=== PATIENT | male | born 1945 | race African-American/Black ===

== ENCOUNTER 2020-01-28 17:35 | Inpatient (IN) ==
[2020-01-28] MEDS ORDERED: DEXTROSE 50% 25 GM/50 ML VIAL IV PRN (20:24)
[2020-01-28] MEDS ORDERED: ONDANSETRON 4 MG/2 ML VIAL IV PRN (20:24)
[2020-01-28] MEDS ORDERED: GLUCAGON 1 MG VIAL IM PRN (20:24)
[2020-01-28] MEDS ORDERED: hydrALAZINE 20 MG/1 ML VIAL IV PRN (20:40)
[2020-01-28] MEDS: SODIUM CHLORIDE 0.9% 1,000 ML IV SCH (22:24)
[2020-01-28] MEDS: TAMSULOSIN 0.4 MG CAPSULE PO SCH (22:24)
[2020-01-29 06:08] LABS: Basophils % 0.3 % (0.0-0.8); Eosinophils % 0.1 % (0.00-10.9); Hemoglobin 11.8 GM/DL (14.0-18.0); Immature Granulocytes % 0.4 %; Immature Granulocytes Absolute 0.03 #; Lymphocytes # 0.9 10*3/uL (1.4-4.0); Lymphocytes % 11.2 % (21.2-54.2); Mean Corpuscular HGB Conc 34.7 GM/DL (32-36); Mean Corpuscular Volume 102.1 FL (87-102); Mean Platelet Volume 10.8 FL (9.6-12.0); Monocytes % 12.8 % (1.7-12.7); Neutrophils % 75.2 % (38.7-73.9); Platelet Count 162 T/CUMM (130-400); Red Blood Count 3.33 MC/CUMM (3.8-5.5); Red Cell Distribution Width 11.9 % (9.3-17.3); White Blood Count 7.8 T/CUMM (4-12)
[2020-01-29 06:33] LABS: Albumin 2.4 G/DL (3.4-5.0); Bilirubin,Total 1.5 MG/DL (0.2-1.0); Calcium 7.8 MG/DL (8.5-10.1); Osmolality,Calculated 283.5 MOS/KG (273-304); Total Protein 6.4 G/DL (6.4-8.3)
[2020-01-29] MEDS: SODIUM CHLORIDE 0.9% 1,000 ML IV SCH ×3 (07:36→16:05)
[2020-01-29] MEDS: ENOXAPARIN 30 MG/0.3 ML SYRINGE SUBCUT SCH (09:25)
[2020-01-29] MEDS: TAMSULOSIN 0.4 MG CAPSULE PO SCH ×2 (09:26→21:05)
[2020-01-29] MEDS: PANTOPRAZOLE 40 MG TABLET PO SCH (09:26)
[2020-01-29] MEDS: ASPIRIN CHEW 81 MG TABLET PO SCH (09:26)
[2020-01-29] MEDS: POTASSIUM CHLORIDE 20 MEQ TABLET PO PRN ×4 (10:41→16:04)
[2020-01-29 11:16] LABS: Bacteria,Urine Occasional /HPF (Few); Bilirubin,Urine Negative (Negative); Blood, Urine Large mg/dL (Negative); Glucose,Urine (UA) Negative (Negative); Ketones,Urine Negative (Negative); Mucus,Urine Occasional /LPF (Occasional); Nitrite,Urine Negative (Negative); Protein,Urine 100 MG/DL; RBC,Urine 196 /HPF (0-4); Urine Appearance Slightly Hazy (Clear); Urine Color Yellow (Yellow); Urine Specific Gravity 1.016 (1.001-1.035); WBC,Urine 103 /HPF (0-6)
[2020-01-29] MEDS ORDERED: cefTRIAXone 1,000 MG in SYRINGE 1 EACH IV SCH (12:00)
[2020-01-29] MEDS ORDERED: amLODIPine 10 MG TABLET PO SCH (16:00)
[2020-01-29] MEDS ORDERED: amLODIPine 5 MG TABLET PO SCH (16:00)
[2020-01-30] MEDS: SODIUM CHLORIDE 0.9% 1,000 ML IV SCH ×2 (05:26→14:47)
[2020-01-30 07:01] LABS: Basophils % 0.3 % (0.0-0.8); Eosinophils % 0.6 % (0.00-10.9); Hematocrit 32.5 VOL% (42.0-52.0); Hemoglobin 10.9 GM/DL (14.0-18.0); Immature Granulocytes % 0.1 %; Immature Granulocytes Absolute 0.01 #; Lymphocytes # 1.3 10*3/uL (1.4-4.0); Lymphocytes % 19.5 % (21.2-54.2); Mean Corpuscular HGB Conc 33.5 GM/DL (32-36); Mean Corpuscular Volume 103.2 FL (87-102); Mean Platelet Volume 10.7 FL (9.6-12.0); Monocytes % 12.7 % (1.7-12.7); Neutrophils % 66.8 % (38.7-73.9); Platelet Count 172 T/CUMM (130-400); Red Blood Count 3.15 MC/CUMM (3.8-5.5); Red Cell Distribution Width 11.9 % (9.3-17.3); White Blood Count 6.9 T/CUMM (4-12)
[2020-01-30 07:18] LABS: Calcium 7.9 MG/DL (8.5-10.1); Osmolality,Calculated 279.4 MOS/KG (273-304)
[2020-01-30] MEDS: ASPIRIN CHEW 81 MG TABLET PO SCH (09:56)
[2020-01-30] MEDS: TAMSULOSIN 0.4 MG CAPSULE PO SCH ×2 (09:56→20:29)
[2020-01-30] MEDS: PANTOPRAZOLE 40 MG TABLET PO SCH (09:56)
[2020-01-30] MEDS: ENOXAPARIN 30 MG/0.3 ML SYRINGE SUBCUT SCH (09:56)
[2020-01-30] MEDS: amLODIPine 5 MG TABLET PO SCH (09:56)
[2020-01-30] MEDS: ceFAZolin 2,000 MG in PREMIX 1 EACH IV SCH ×2 (14:47→22:02)
[2020-01-31 05:49] LABS: Basophils % 0.6 % (0.0-0.8); Eosinophils # 0.1 10*3/uL (0.0-0.87); Eosinophils % 1.4 % (0.00-10.9); Hematocrit 32.1 VOL% (42.0-52.0); Hemoglobin 10.9 GM/DL (14.0-18.0); Immature Granulocytes % 0.4 %; Immature Granulocytes Absolute 0.03 #; Lymphocytes # 1.7 10*3/uL (1.4-4.0); Lymphocytes % 23.9 % (21.2-54.2); Mean Corpuscular Volume 103.5 FL (87-102); Mean Platelet Volume 10.7 FL (9.6-12.0); Monocytes % 9.8 % (1.7-12.7); Neutrophils % 63.9 % (38.7-73.9); Platelet Count 188 T/CUMM (130-400); Red Cell Distribution Width 11.7 % (9.3-17.3)
[2020-01-31] MEDS: ceFAZolin 2,000 MG in PREMIX 1 EACH IV SCH ×3 (05:49→22:06)
[2020-01-31] MEDS: SODIUM CHLORIDE 0.9% 1,000 ML IV SCH (05:52)
[2020-01-31 06:10] LABS: Osmolality,Calculated 276.5 MOS/KG (273-304)
[2020-01-31 06:12] LABS: Hypochromasia 1+; Macrocytosis 1+; Platelet Estimate Adequate
[2020-01-31] MEDS: amLODIPine 5 MG TABLET PO SCH (17:19)
[2020-01-31] MEDS: ASPIRIN CHEW 81 MG TABLET PO SCH (17:20)
[2020-01-31] MEDS: ENOXAPARIN 30 MG/0.3 ML SYRINGE SUBCUT SCH (17:20)
[2020-01-31] MEDS: PANTOPRAZOLE 40 MG TABLET PO SCH (17:20)
[2020-01-31] MEDS: TAMSULOSIN 0.4 MG CAPSULE PO SCH ×2 (17:28→22:06)
[2020-01-31] MEDS: POTASSIUM CHLORIDE 20 MEQ TABLET PO SCH (17:28)
[2020-01-31] MEDS: ACETAMINOPHEN 325 MG TABLET PO PRN (23:18)
[2020-02-01] MEDS: ceFAZolin 2,000 MG in PREMIX 1 EACH IV SCH ×3 (05:30→21:34)
[2020-02-01] MEDS: SODIUM CHLORIDE 0.9% 1,000 ML IV SCH (06:15)
[2020-02-01 06:39] LABS: Basophils % 0.4 % (0.0-0.8); Eosinophils # 0.2 10*3/uL (0.0-0.87); Eosinophils % 2.4 % (0.00-10.9); Hematocrit 29.5 VOL% (42.0-52.0); Immature Granulocytes % 0.6 %; Immature Granulocytes Absolute 0.04 #; Lymphocytes # 1.8 10*3/uL (1.4-4.0); Lymphocytes % 24.5 % (21.2-54.2); Mean Corpuscular HGB Conc 33.9 GM/DL (32-36); Mean Corpuscular Volume 104.2 FL (87-102); Mean Platelet Volume 10.6 FL (9.6-12.0); Monocytes % 8.2 % (1.7-12.7); Neutrophils % 63.9 % (38.7-73.9); Platelet Count 184 T/CUMM (130-400); Red Blood Count 2.83 MC/CUMM (3.8-5.5); Red Cell Distribution Width 11.9 % (9.3-17.3); White Blood Count 7.2 T/CUMM (4-12)
[2020-02-01 06:57] LABS: Calcium 7.9 MG/DL (8.5-10.1); Osmolality,Calculated 281.1 MOS/KG (273-304)
[2020-02-01 07:00] LABS: Band Neutrophils 1 % (0-10); Eosinophils 3 % (0-10); Hypochromasia 1+; Lymphocytes 28 % (20-55); Microcytosis 1+; Platelet Estimate Adequate; Segmented Neutrophils 61 % (50-85); Total Cells Counted 100
[2020-02-01] MEDS ORDERED: LIDOCAINE 2% TOP JELLY 20 ML VIAL INTRAURETH ONE (09:48)
[2020-02-01] MEDS: BRIMONIDINE 0.1% OPH SOLN 5 ML BOTTLE RIGHT EYE SCH ×3 (10:09→21:34)
[2020-02-01] MEDS: DORZOLAMIDE 2% OPH SOLN 10 ML BOTTLE BOTH EYES SCH ×3 (10:09→21:34)
[2020-02-01] MEDS ORDERED: LIDOCAINE 2% 5 ML VIAL ONE (11:07)
[2020-02-01] MEDS ORDERED: propofoL 200 MG/20 ML VIAL IV ONE (11:07)
[2020-02-01] MEDS: ENOXAPARIN 30 MG/0.3 ML SYRINGE SUBCUT SCH (14:08)
[2020-02-01] MEDS: PANTOPRAZOLE 40 MG TABLET PO SCH (14:09)
[2020-02-01] MEDS: ASPIRIN CHEW 81 MG TABLET PO SCH (14:09)
[2020-02-01] MEDS: amLODIPine 5 MG TABLET PO SCH (14:09)
[2020-02-01] MEDS: TAMSULOSIN 0.4 MG CAPSULE PO SCH ×2 (14:09→21:34)
[2020-02-01] MEDS: POTASSIUM CHLORIDE 20 MEQ TABLET PO SCH (14:11)
[2020-02-01] MEDS: ACETAMINOPHEN 325 MG TABLET PO PRN ×2 (18:04→21:33)
[2020-02-02] MEDS: ceFAZolin 2,000 MG in PREMIX 1 EACH IV SCH (05:36)
[2020-02-02] MEDS ORDERED: MAGNESIUM SULF RIDER 2 GM in PREMIX 1 EACH IV ONE (08:47)
[2020-02-02] MEDS ORDERED: POTASSIUM CHLORIDE 20 MEQ TABLET PO ONE (09:00)
[2020-02-02] MEDS: amLODIPine 5 MG TABLET PO SCH (09:36)
[2020-02-02] MEDS: POTASSIUM CHLORIDE 20 MEQ TABLET PO SCH (09:36)
[2020-02-02] MEDS: ENOXAPARIN 30 MG/0.3 ML SYRINGE SUBCUT SCH (09:36)
[2020-02-02] MEDS: ASPIRIN CHEW 81 MG TABLET PO SCH (09:36)
[2020-02-02] MEDS: TAMSULOSIN 0.4 MG CAPSULE PO SCH (09:36)
[2020-02-02] MEDS: PANTOPRAZOLE 40 MG TABLET PO SCH (09:36)
[2020-02-02] MEDS ORDERED: NAFCILLIN IV ONE (09:48)
[2020-02-02] MEDS ORDERED: SODIUM CHLORIDE 0.9% IV ONE (09:48)
[2020-02-02] MEDS: BRIMONIDINE 0.1% OPH SOLN 5 ML BOTTLE RIGHT EYE SCH (10:03)
[2020-02-02] MEDS: DORZOLAMIDE 2% OPH SOLN 10 ML BOTTLE BOTH EYES SCH (10:03)
[2020-02-02] MEDS ORDERED: NAFCILLIN 2,000 MG in SODIUM CHLORIDE 0.9% 100 ML IV SCH (11:00)
[2020-02-02 11:30] VITALS: BP 117/76
== END 2020-02-02 12:35 | disposition home health service (06) | DRG 872 ==
LOC: N.3E 19:47 → SUATTDRO 19:47
PROVIDERS: ADMIT Internal Medicine; ATTEND Internal Medicine

== ENCOUNTER 2022-04-27 12:43 | Observation (INO) ==
[2022-04-27 16:13] LABS: Basophils % 0.3 % (0.0-0.8); Eosinophils # 0.1 10*3/uL (0.0-0.87); Eosinophils % 0.6 % (0.00-10.9); Hematocrit 32.2 VOL% (42.0-52.0); Immature Granulocytes % 0.4 %; Immature Granulocytes Absolute 0.04 #; Lymphocytes # 0.7 10*3/uL (1.4-4.0); Lymphocytes % 7.1 % (21.2-54.2); Mean Corpuscular HGB Conc 34.2 GM/DL (32-36); Mean Corpuscular Volume 101.6 FL (87-102); Mean Platelet Volume 10.2 FL (9.6-12.0); Monocytes # 0.5 10*3/uL (0.11-0.8); Monocytes % 5.6 % (1.7-12.7); Platelet Count 174 T/CUMM (130-400); Red Blood Count 3.17 MC/CUMM (3.8-5.5); Red Cell Distribution Width 11.5 % (9.3-17.3); White Blood Count 9.4 T/CUMM (4-12)
[2022-04-27 16:21] LABS: PT Patient Result 11.4 SECS (10.1-12.1)
[2022-04-27 16:43] LABS: Urine Appearance Turbid (Clear); Urine Color Red (Yellow)
[2022-04-27 16:44] LABS: Bilirubin,Urine Large mg/dL (Negative); Blood, Urine Large mg/dL (Negative); Glucose,Urine (UA) 250 mg/dL (Negative); Ketones,Urine >=160 mg/dL (Negative); Nitrite,Urine Positive (Negative); Protein,Urine >=300 mg/dL (Negative); RBC,Urine 125279 /HPF (0-4); Urine Specific Gravity 1.008 (1.001-1.035); Urine Urobilinogen >= 8.0 eU/dL (<2.0); Urine pH >= 9.0 (4.5-8.0)
[2022-04-27 16:44] LABS: Bilirubin,Total 0.7 MG/DL (0.20-1.00); Calcium 9.1 MG/DL (8.5-10.1); Potassium 3.7 MMOL/L (3.5-5.1); Total Protein 7.4 G/DL (6.4-8.2)
[2022-04-27] MEDS ORDERED: hydrALAZINE 20 MG/1 ML VIAL IV PRN (19:24)
[2022-04-27] MEDS ORDERED: MORPHINE 2 MG/1 ML SYRINGE IV PRN (19:24)
[2022-04-27] MEDS: cefTRIAXone 1,000 MG in SODIUM CHLORIDE 0.9% 100 ML IV SCH (20:20)
[2022-04-27 20:28] LABS: Hematocrit 31.7 VOL% (42.0-52.0); Hemoglobin 10.8 GM/DL (14.0-18.0)
[2022-04-27] MEDS: TAMSULOSIN 0.4 MG CAPSULE PO SCH (21:23)
[2022-04-27] MEDS: LOSARTAN 25 MG TABLET PO SCH (21:23)
[2022-04-28 04:24] LABS: Basophils % 0.4 % (0.0-0.8); Eosinophils # 0.3 10*3/uL (0.0-0.87); Eosinophils % 3.6 % (0.00-10.9); Hematocrit 29.8 VOL% (42.0-52.0); Hemoglobin 9.8 GM/DL (14.0-18.0); Immature Granulocytes % 0.3 %; Immature Granulocytes Absolute 0.02 #; Lymphocytes # 1.1 10*3/uL (1.4-4.0); Lymphocytes % 15.1 % (21.2-54.2); Mean Corpuscular HGB Conc 32.9 GM/DL (32-36); Mean Corpuscular Volume 103.5 FL (87-102); Mean Platelet Volume 10.3 FL (9.6-12.0); Monocytes # 0.7 10*3/uL (0.11-0.8); Monocytes % 10.1 % (1.7-12.7); Neutrophils % 70.5 % (38.7-73.9); Platelet Count 165 T/CUMM (130-400); Red Blood Count 2.88 MC/CUMM (3.8-5.5); Red Cell Distribution Width 11.6 % (9.3-17.3)
[2022-04-28 04:37] LABS: Calcium 8.6 MG/DL (8.5-10.1); Osmolality,Calculated 278.4 MOS/KG (273-304); Potassium 2.7 MMOL/L (3.5-5.1)
[2022-04-28] MEDS: POTASSIUM CHLORIDE 20 MEQ TABLET PO PRN ×4 (05:36→23:29)
[2022-04-28] MEDS ORDERED: POTASSIUM CHLORIDE 20 MEQ TABLET PO ONE (06:37)
[2022-04-28] MEDS: PANTOPRAZOLE 40 MG VIAL IV SCH (11:01)
[2022-04-28] MEDS ORDERED: NON-FORMULARY MEDICATION (Losartan-Hydrochlorothiazide 100-12.5 mg Tablet) PO SCH (11:26)
[2022-04-28] MEDS ORDERED: MAGNESIUM SULF RIDER 2 GM/50 ML PREMIX IV ONE (11:28)
[2022-04-28 12:24] LABS: Hematocrit 31.2 VOL% (42.0-52.0); Hemoglobin 10.8 GM/DL (14.0-18.0)
[2022-04-28] MEDS: TAMSULOSIN 0.4 MG CAPSULE PO SCH ×2 (13:03→20:41)
[2022-04-28] MEDS: LOSARTAN 25 MG TABLET PO SCH ×2 (13:03→20:41)
[2022-04-28] MEDS: amLODIPine 10 MG TABLET PO SCH (13:03)
[2022-04-28] MEDS: NICOTINE 14 MG/24 HR PATCH TRANSDERM SCH (13:04)
[2022-04-28] MEDS: cefTRIAXone 1,000 MG in SODIUM CHLORIDE 0.9% 100 ML IV SCH (20:13)
[2022-04-28 20:25] LABS: Hematocrit 30.3 VOL% (42.0-52.0); Hemoglobin 10.2 GM/DL (14.0-18.0)
[2022-04-29 05:14] LABS: Basophils % 0.3 % (0.0-0.8); Eosinophils # 0.2 10*3/uL (0.0-0.87); Hematocrit 28.2 VOL% (42.0-52.0); Hemoglobin 9.4 GM/DL (14.0-18.0); Immature Granulocytes % 0.3 %; Immature Granulocytes Absolute 0.02 #; Lymphocytes # 0.7 10*3/uL (1.4-4.0); Lymphocytes % 11.7 % (21.2-54.2); Mean Corpuscular HGB Conc 33.3 GM/DL (32-36); Mean Corpuscular Volume 104.4 FL (87-102); Mean Platelet Volume 10.3 FL (9.6-12.0); Monocytes # 0.6 10*3/uL (0.11-0.8); Monocytes % 10.6 % (1.7-12.7); Neutrophils % 73.1 % (38.7-73.9); Platelet Count 148 T/CUMM (130-400); Red Cell Distribution Width 11.7 % (9.3-17.3); White Blood Count 6.1 T/CUMM (4-12)
[2022-04-29 05:42] LABS: Calcium 8.1 MG/DL (8.5-10.1); Osmolality,Calculated 282.1 MOS/KG (273-304); Potassium 3.6 MMOL/L (3.5-5.1)
[2022-04-29] MEDS: LOSARTAN 25 MG TABLET PO SCH (09:22)
[2022-04-29] MEDS: NICOTINE 14 MG/24 HR PATCH TRANSDERM SCH (09:23)
[2022-04-29] MEDS: PANTOPRAZOLE 40 MG VIAL IV SCH (09:23)
[2022-04-29] MEDS: TAMSULOSIN 0.4 MG CAPSULE PO SCH (09:23)
[2022-04-29] MEDS: amLODIPine 10 MG TABLET PO SCH (09:23)
[2022-04-29 12:03] VITALS: BP 156/73
== END 2022-04-29 15:35 | disposition home or self-care (01) ==
LOC: N.ED 12:43 → N.EDINP 19:20 → SUATTDRO 19:20 → INTOOBSV 19:20 → N.EDINP 04-28 08:00 → N.TELEN 04-28 08:19
PROVIDERS: ADMIT Internal Medicine; ATTEND Family Medicine